=== PATIENT | female | born 1950 | race Caucasian/White ===

== ENCOUNTER → 2021-07-28 | Outpatient (CLI) | payer MEDICARE ==
[~2021-07-28] MED LIST: CALCI-CHEW500 MG PO; CALCIUM WITH VI1 TAB PO; LEXAPRO 10MG10 MG PO; NORCO 325 MG-51 TAB PO; PRILOSEC 20MG20 MG PO; PRINIVIL10 MG PO; VITA #121000 MCG/M IM; ZOLOFT20 MG/ML PO
== END ==
LOC: COL.PUL 10:58
DX: R06.02 Shortness of breath (principal)